=== PATIENT | female | born 1960 | race Caucasian/White ===

== ENCOUNTER 2018-08-10 18:14 | Inpatient (IN) | payer BC ==
[2018-08-10] VITALS: BP 143/83
[~2018-08-10] VITALS: Ht 154.9 cm; Wt 94.5 kg
--- NOTE | 2018-08-10 18:19 | NUR ---
PT AMBULATED TO BED 05.
[2018-08-10 18:25] VITALS: BP 142/85
--- NOTE | 2018-08-10 18:29 | NUR ---
HANDED URINE CUP FOR SAMPLE---ABLE T0 PROVIDE A MINUTE AMOUNT OF URINE ONLY AT THIS TIME
--- NOTE | 2018-08-10 18:30 | NUR ---
C/O INTERMITTENT RUQ PAIN NON RADIATING SHARP IN NATURE X 3 DAYS--- WORSE WITH FOOD INTAKE---+CONSTIPATION AND DYSURIA, URGENCY. DENIES N/V/D; AAOX4 WITH EVEN AND STEADY GAIT; HR EVEN AND REGULAR; PT DENIES ANY FEVER, CP, SOB, OR COUGH AT THIS TIME; PATIENT STATES PAIN OF 5/10 AT THIS TIME; VSS; PATIENT POSITIONED FOR COMFORT; HOB ELEVATED; BEDRAILS UP X1; BED DOWN. ER MD MADE AWARE OF PT STATUS.
--- NOTE | 2018-08-10 19:15 | NUR ---
ASSUMED CARE OF PT FROM NAREN ESPAÑA.
[2018-08-10] MEDS ORDERED: KETOROLAC 30 MG/ML VIAL IVP ONE (19:45)
[2018-08-10 20:02] LABS: BASOPHILS # (AUTO) 0.1 K/uL (0.00-0.22); BASOPHILS % (AUTO) 0.6 % (0.0-2.0); EOSINOPHILS # (AUTO) 0.3 K/uL (0-0.4); EOSINOPHILS % (AUTO) 2.7 % (0.0-4.0); HEMATOCRIT 41.6 % (36-48); HEMOGLOBIN 13.9 g/dL (12.0-16.0); LYMPHOCYTES # (AUTO) 2.6 K/uL (2.5-16.5); LYMPHOCYTES % (AUTO) 22.5 % (20.5-51.1); MEAN CORPUSCULAR HEMOGLOBIN 29 pg (27-31); MEAN CORPUSCULAR HGB CONC 33 g/dL (33-37); MONOCYTES # (AUTO) 0.8 K/uL (0.8-1.0); MONOCYTES % (AUTO) 6.6 % (1.7-9.3); NEUTROPHILS # (AUTO) 7.8 K/uL (1.8-7.7); NEUTROPHILS % (AUTO) 67.6 % (42.2-75.2); PLATELET COUNT (AUTO) 393 K/uL (140-450); RED BLOOD CELL COUNT(AUTO) 4.84 MIL/uL (4.20-5.40); RED CELL DISTRIBUTION WIDTH 14.3 % (11.6-13.7); WHITE BLOOD COUNT (AUTO) 11.6 K/uL (4.8-10.8)
[2018-08-10 20:04] LABS: APPEARANCE,URINE CLEAR (CLEAR); BILIRUBIN,URINE 1+ (NEGATIVE); BLOOD, URINE TRACE-L (NEGATIVE); COLOR,URINE YELLOW (YELLOW); LEUKOCYTE ESTERASE ,URINE NEGATIVE (NEGATIVE); NITRITE, URINE NEGATIVE (NEGATIVE); PH,URINE 5.5 (5.0-9.0); UGLUCOSE NEGATIVE (NEGATIVE)
[2018-08-10 20:13] LABS: ANION GAP 8.5 (8-16); CARBON DIOXIDE 31.1 mmol/L (21-32); CREATININE 0.9 mg/dL (0.6-1.3); POTASSIUM 3.6 mmol/L (3.5-5.1)
[2018-08-10 20:18] LABS: ALBUMIN 3.8 g/dL (3.4-5.0)
--- NOTE | 2018-08-10 22:10 | NUR ---
PT SLEEPING, AROUSABLE TO VOICE. PT REPORTS RELIEF OF PAIN S/P TORADOL ADMIN.
[2018-08-10] MEDS ORDERED: PIPERACILLIN/TAZOBACTAM 3.375 GM in DEXTROSE 5% 50 ML IV ONE (22:40)
[2018-08-10] MEDS ORDERED: PIPERACILLIN/TAZOBACTAM 3.375 GM VIAL IV ONE (22:58)
[2018-08-10] MEDS ORDERED: ACETAMINOPHEN 325 MG TAB PO PRN (23:05)
[2018-08-10] MEDS ORDERED: NACL 0.9% 1,000 ML IV SCH (23:05)
[2018-08-10] MEDS ORDERED: ZOLPIDEM 5 MG TAB PO PRN (23:05)
[2018-08-10] MEDS ORDERED: HYDROcodone/APAP 5/325 MG 1 TAB TAB PO PRN (23:05)
[2018-08-10] MEDS ORDERED: ONDANSETRON 4 MG/2 ML VIAL IM/IVP PRN (23:05)
[2018-08-10] MEDS ORDERED: DOCUSATE SODIUM 100 MG GELCAP PO PRN (23:05)
[2018-08-10] MEDS ORDERED: MORPHINE SULFATE 2 MG/ML SYR IVP PRN (23:05)
--- NOTE | 2018-08-10 23:13 | NUR ---
Patient will be admitted to care of DR GUTIERREZ. Admited to TELE. Will go to room 111-A. Belongings list completed. Report to NAREN BUCK.
[2018-08-10 23:28] LABS: PROTHROMBIN TIME 10.3 secs (10.8-13.4)
[2018-08-10] MEDS ORDERED: BISACODYL 10 MG SUPP RC PRN (23:35)
[2018-08-10 23:38] LABS: CHOL/HDL RATIO 4.8 (1-4.5); MAGNESIUM 2.1 mg/dL (1.8-2.4); PHOSPHORUS 3.6 mg/dL (2.5-4.9); THYROID STIMULATING HORMONE 2.23 uIU/mL (0.34-3.74)
--- NOTE | 2018-08-10 23:40 | NUR ---
RECIEVED PATIENT FROM ER PER LUANA .AAOX4,NOT IN RESPIRATORY DISTRESS, WALKABLE TO BED ,WITH IV SITE @ RAC 20G ,V/S STABLE ,MAINTAIN NPO UNTIL FURTHER ORDER INSTRUCTED TO PATIENT. MRSA SPECIMEN COLLECTED AND SENT TO LAB. OTHER ADMISSION ROUTINE COMPLETED.,WILL CONTINUE TO MONITOR.CALL LIGHT WITHIN REACH.
[2018-08-11] VITALS: BP 143/83
[2018-08-11] MEDS ORDERED: POLYETHYLENE GLYCOL 17 GM/PKT PO SCH (00:15)
[2018-08-11 00:16] LABS: BARBITURATE, URINE NEG. ng/ml (NEG <=200); BENZODIAZEPINE, URINE NEG. ng/mL (NEG <=200); CANNABINOID, URINE NEG. ng/mL (NEG <=50); COCAINE, URINE NEG. ng/mL (NEG <=300); OPIATE, URINE NEG. ng/mL (NEG <=2000); PHENCYCLIDINE SCREEN,URINE NEG. ng/mL (NEG <=25)
[2018-08-11] MEDS ORDERED: ALBUTEROL SULFATE/IPRATROPIU 3 ML SOL IH PRN (02:25)
[2018-08-11] MEDS ORDERED: ALBU2SYR49 PO (02:26)
[2018-08-11] MEDS ORDERED: CETI-32 PO (02:26)
[2018-08-11] MEDS: DEXT 5% /NACL 0.9% 1,000 ML IV SCH ×2 (02:45→14:57)
[2018-08-11 04:00] VITALS: BP 143/83
--- NOTE | 2018-08-11 04:00 | NUR ---
V/S TAKEN ,NO RESPIRATORY DISTRESS NOTED,PT. DENIES PAIN .STILL NO BM,MAINTAIN NPO. WILL CONTINUE TO MONITOR.
[2018-08-11] MEDS: PIPER/TAZO 3.375GM/D5W PREMIX 50 ML IV SCH ×3 (06:09→17:26)
[2018-08-11] MEDS ORDERED: PIPERACILLIN/TAZOBACTAM 3.375 GM VIAL IV ONE (06:10)
--- NOTE | 2018-08-11 06:21 | NUR ---
SCHEDULED IV MED.GIVEN,PT HAVE STABLE V/S .NO COMPLAIN OF PAIN .MAINTAIN NPO.WILL CONTINUE TO MONITOR
--- NOTE | 2018-08-11 06:52 | NUR ---
SEEN AND EXAMINE BY DOCTOR NUNEZ WITH NEW ORDERS MADE C/O RESIDENT ON DUTY DOCTOR. MAINTAIN NPO EXCEPT MEDS ORDERED BY MD..WILL CONTINUE TO MONITOR,
[2018-08-11 07:14] LABS: BASOPHILS % (AUTO) 0.3 % (0.0-2.0); EOSINOPHILS # (AUTO) 0.2 K/uL (0-0.4); EOSINOPHILS % (AUTO) 1.2 % (0.0-4.0); HEMATOCRIT 38.6 % (36-48); HEMOGLOBIN 13.1 g/dL (12.0-16.0); LYMPHOCYTES # (AUTO) 1.5 K/uL (2.5-16.5); LYMPHOCYTES % (AUTO) 11.5 % (20.5-51.1); MEAN CORPUSCULAR HEMOGLOBIN 29 pg (27-31); MEAN CORPUSCULAR HGB CONC 34 g/dL (33-37); MONOCYTES # (AUTO) 0.8 K/uL (0.8-1.0); NEUTROPHILS # (AUTO) 10.5 K/uL (1.8-7.7); PLATELET COUNT (AUTO) 359 K/uL (140-450); RED BLOOD CELL COUNT(AUTO) 4.48 MIL/uL (4.20-5.40); RED CELL DISTRIBUTION WIDTH 14.5 % (11.6-13.7)
[2018-08-11 07:25] LABS: CARBON DIOXIDE 30.6 mmol/L (21-32); CREATININE 0.9 mg/dL (0.6-1.3); POTASSIUM 3.6 mmol/L (3.5-5.1)
--- NOTE | 2018-08-11 07:30 | NUR ---
REPORT GIVEN TO AM SHIFT NURSE FOR CONTINUITY OF CARE.
--- NOTE | 2018-08-11 07:32 | NUR ---
RECEIVED BED SIDE REPORT FROM HYDROGRAPHY TEACHER RN. PT IN STABLE CONDITION, ON RA I NNO DISTRESS, A/O X4, SKIN INTACT, R AC 20G RUNNING NS AT 60CC/HR. NPO SIGN EXCEPT MEDS POSTED ON DOOR. APPEARS IN NO PAIN, NO N/V. GI CONSULT TO COME AND SEE PT AND DECIDE WHICH PROCEDURE TO DO, EITHER MRCP OR ERCP. BED LOW, CALL LIGHT WITHIN REACH, WILL CONTINUE TO MONITOR
[2018-08-11 08:00] VITALS: BP 122/69
[2018-08-11] MEDS ORDERED: KETOROLAC 30 MG/ML VIAL IVP SCH (08:30)
[2018-08-11] MEDS ORDERED: LACTOBACILLUS RHAMNOSUS GG 1 EACH CAP PO SCH (09:00)
[2018-08-11] MEDS ORDERED: DOCUSATE SODIUM 100 MG GELCAP PO SCH ×2 (09:00→21:00)
[2018-08-11] MEDS ORDERED: LORATADINE 10 MG TAB PO SCH (09:00)
--- NOTE | 2018-08-11 09:50 | NUR ---
PT WENT TO DO CT WITH CONTRAST OF ABDOMEN. PT IN STABLE CONDITION. WHEELED OFF IN WHEELCHAIR, DISCONNECTED IV FROM PUMP, GAVE CT PERSON THE HAND OFF REPORT. CONSENT FORMED SIGNED BY PT. SIGNED CONSENT FORM
--- NOTE | 2018-08-11 10:15 | NUR ---
PT RETUNED TO ROOM FROM CT. PT IN STABLE CONDITION. ASKED FOR WATER WITH ICE. GAVE PT WATER. WILL CONTINUE TO MONITOR
[2018-08-11 12:00] VITALS: BP_SYST 117; BP_SYST 142; BP_DIAS 62; BP_DIAS 97
[2018-08-11 12:13] LABS: ALBUMIN 3.6 g/dL (3.4-5.0); BILIRUBIN,DIRECT 0.2 mg/dL (0.0-0.3); TOTAL BILIRUBIN 1.1 mg/dL (0.0-1.0)
[2018-08-11] MEDS ORDERED: MORPHINE SULFATE 2 MG/ML SYR IVP PRN (13:45)
[2018-08-11] MEDS ORDERED: KETOROLAC 15 MG/ML VIAL IVP PRN (14:30)
[2018-08-11 16:00] VITALS: BP 125/70
[2018-08-11 17:11] LABS: BASOPHILS % (AUTO) 0.4 % (0.0-2.0); EOSINOPHILS # (AUTO) 0.2 K/uL (0-0.4); EOSINOPHILS % (AUTO) 1.9 % (0.0-4.0); HEMATOCRIT 36.3 % (36-48); HEMOGLOBIN 12.1 g/dL (12.0-16.0); LYMPHOCYTES % (AUTO) 18.2 % (20.5-51.1); MEAN CORPUSCULAR HEMOGLOBIN 29 pg (27-31); MEAN CORPUSCULAR HGB CONC 33 g/dL (33-37); MEAN CORPUSCULAR VOLUME 85.6 fL (80-94); MONOCYTES # (AUTO) 0.9 K/uL (0.8-1.0); MONOCYTES % (AUTO) 7.9 % (1.7-9.3); NEUTROPHILS # (AUTO) 7.9 K/uL (1.8-7.7); NEUTROPHILS % (AUTO) 71.6 % (42.2-75.2); PLATELET COUNT (AUTO) 322 K/uL (140-450); RED BLOOD CELL COUNT(AUTO) 4.24 MIL/uL (4.20-5.40)
[2018-08-11 17:19] LABS: ANION GAP 7.4 (8-16); CARBON DIOXIDE 31.2 mmol/L (21-32); POTASSIUM 3.6 mmol/L (3.5-5.1)
[2018-08-11 18:27] LABS: TOTAL BILIRUBIN 1.4 mg/dL (0.0-1.0)
--- NOTE | 2018-08-11 18:57 | NUR ---
REPORTED LABS TO . NOTIFIED THAT TOTAL BILI IS 1.4, ALKALINE PHOSPHATASE 74. SAID PT WILL NEED ERCP OR MRCO. NOT A CANDIDATE FOR SURGERY
--- NOTE | 2018-08-11 19:20 | NUR ---
SPOKE WITH AND NOTIFIED HER THAT DID NOT WANT PT TO HAVE THE SURGERY BECAUSE TOTAL BILI WENT UP TO 1.4. SAID TO START PT ON NPO AFTER MIDNIGHT AND TO GIVE PT FOOD NOW
--- NOTE | 2018-08-11 19:21 | NUR ---
RECEIVED BEDSIDE REPORT FROM DAY SHIFT NURSE. PATIENT IS AWAKE, ALERT, AND COOPERATIVE. RESPIRATION EVEN UNLABORED ON ROOM AIR. SKIN IS WARM AND DRY. IV PATENT AND INTACT. PATIENT IS AMBULATORY AND ABLE TO MAKE NEEDS KNOWN. PLAN OF CARE WAS DISCUSSED. ALL SAFETY MEASURES IN PLACE. BED IS AT LOW POSITION. CALL LIGHT WITHIN REACH AND VERBALIZES ITS USE. WILL CONTINUE TO MONITOR.
--- NOTE | 2018-08-11 19:30 | NUR ---
GAVE BEDSIDE REPORT TO CUTTER IN RN. PT IN STABLE CONDITION
--- NOTE | 2018-08-11 21:01 | NUR ---
PATIENT REFUSED MED. EDUCATED THE RISK AND BENEFITS X2 STILL REFUSED. WILL CONTINUE TO MONITOR.
--- NOTE | 2018-08-11 21:20 | NUR ---
PATIENT WANTS AMA AFTER DR. NUNEZ EXPLAINED AND TALK TO HER ABOUT HER CONDITION. DR. ZARATE RESIDENT IS AWARE OF THE SITUATION.
--- NOTE | 2018-08-11 21:40 | NUR ---
PATIENT LEFT THE FACILITY AT 2140 WITH FAMILY MEMBERS. PATIENT STATED SHES GOING TO [facility]. PATIENT IS IN STABLE CONDITION.
== END 2018-08-11 21:40 | disposition left against medical advice (07) | DRG 445 ==
LOC: MED 18:14 → MTU 22:51
PROVIDERS: ADMIT General Practice; ATTEND General Practice
DX: K80.62 Calculus of gallbladder and bile duct with acute cholecystitis without obstruction (principal); N39.0 Urinary tract infection, site not specified; K83.8 Other specified diseases of biliary tract; J45.909 Unspecified asthma, uncomplicated; D72.819 Decreased white blood cell count, unspecified; K76.0 Fatty (change of) liver, not elsewhere classified; D18.09 Hemangioma of other sites; E66.9 Obesity, unspecified; Z53.21 Procedure and treatment not carried out due to patient leaving prior to being seen by health care provider; Z68.39 Body mass index [BMI] 39.0-39.9, adult
CPT/HCPCS: 36415; 74160; 76705; 80048; 80053; 80076; 80305; 81001; 82150; 82247; 83036; 83690; 83735; 83880; 84100; 84134; 84443; 84484; 84703; 85025; 85610; 85730; 87040; 87081; 87086; 93005; 96365; 96375; 99285; J1885; J2543; J7030; J7042; J7060; Q0092; Q9967